=== PATIENT | male | born 1940 | race Caucasian/White ===

== ENCOUNTER 2019-04-12 07:46 | Day surgery (SDC) | payer MEDICARE, OTHER ==
[~2019-04-12 07:46] MED LIST: ACETAMINOPHEN 500 MG TABLET PO ONE; CEFAZOLIN 2 Gram 2 GM/50 ML BAG IVPB ONE; CELECOXIB 100 MG CAPSULE PO ONE; FAMOTIDINE 20MG TABLET PO ONE; METOCLOPRAMIDE 10 MG TABLET PO ONE; SCOPOLAMINE 1 PATCH TDSY TD ONE; VANCOMYCIN 1GM/200ML PREMIX 1 GM/200 ML PIGGYBACK IVPB ONE
[2019-04-12] MEDS ORDERED: LIDOCAINE 2% MDV (20MG/ML) 20ML VIAL IV ONE (07:47)
[2019-04-12] MEDS ORDERED: SEVOFLURANE 250 ML INH ONE (07:47)
[2019-04-12] MEDS ORDERED: EPHEDRINE SULFATE 50 MG/ML ML IV ONE (07:47)
[2019-04-12] MEDS ORDERED: ONDANSETRON HCL IV 4 MG/2 ML VIAL IVP ONE (07:47)
[2019-04-12] MEDS ORDERED: MIDAZOLAM HCL 2MG/2ML VIAL IV ONE (07:47)
[2019-04-12] MEDS ORDERED: ROPIVACAINE HCL (NAROPIN) /PF 5MG/ML 20ML VIAL IV ONE (07:47)
[2019-04-12] MEDS ORDERED: PROPOFOL 10 MG/ML VIAL IV ONE (07:47)
[2019-04-12] MEDS ORDERED: FENTANYL PF 100MCG/2ML VIAL IV ONE (07:47)
[2019-04-12] MEDS ORDERED: DEXAMETHASONE 4 MG/ML 1ML VIAL IVP ONE ×2 (07:47)
[2019-04-12 08:36] LABS: ABO GROUP A; ANTIBODY SCREEN NEGATIVE (NEGATIVE); RH TYPE POSITIVE
[2019-04-12] MEDS ORDERED: RINGERS SOLUTION,LACTATED 1,000 ML IV ONE ×3 (08:40→12:00)
[2019-04-12] MEDS ORDERED: ACETAMINOPHEN 325 MG TAB PO PRN (09:19)
[2019-04-12] MEDS ORDERED: HYDROMORPHONE HCL 2 MG/ML VIAL IM PRN ×2 (09:19)
[2019-04-12] MEDS ORDERED: BISACODYL 10 MG SUPP RC PRN (09:19)
[2019-04-12] MEDS ORDERED: KETOROLAC 30 MG/ML VIAL IVP PRN (09:19)
[2019-04-12] MEDS ORDERED: ACETAMINOPHEN W/ CODEINE 300MG/30MG TABLET PO PRN ×2 (09:19)
[2019-04-12] MEDS ORDERED: ACETAMINOPHEN W/ CODEINE 300MG/60MG TABLET PO PRN (09:19)
[2019-04-12] MEDS ORDERED: PROMETHAZINE HCL 25 MG TABLET PO PRN (09:19)
[2019-04-12] MEDS ORDERED: TRAMADOL HCL 50 MG TABLET PO PRN ×2 (09:19)
[2019-04-12] MEDS ORDERED: METOCLOPRAMIDE 10 MG TABLET PO PRN (09:19)
[2019-04-12] MEDS ORDERED: ONDANSETRON 4 MG ODT TABLET SL PRN (09:19)
[2019-04-12] MEDS ORDERED: HYDROCODONE/APAP 7.5/325MG TABLET PO PRN (09:19)
[2019-04-12] MEDS ORDERED: MAGNESIUM HYDROXIDE 30 ML UDC PO PRN (09:19)
[2019-04-12] MEDS ORDERED: NALOXONE 0.4 MG/1 ML VIAL IVP PRN (09:19)
[2019-04-12] MEDS ORDERED: HYDROCODONE/APAP 5/325MG TABLET PO PRN ×2 (09:19)
[2019-04-12] MEDS ORDERED: DIPHENHYDRAMINE HCL 25 MG CAPSULE PO PRN (09:19)
[2019-04-12] MEDS ORDERED: AL HYDROX/MAG HYDROX 30ML UD PO PRN (09:19)
[2019-04-12] MEDS ORDERED: DOCUSATE SODIUM 100 MG CAPSULE PO SCH (10:00)
[2019-04-12] MEDS ORDERED: VANCOMYCIN HCL 1 GM VIAL IU ONE (12:00)
[2019-04-12] MEDS ORDERED: TRANEXAMIC ACID 1,000 MG/10 ML ML IU ONE (12:00)
[2019-04-12] MEDS ORDERED: VANCOMYCIN HCL 1 GM VIAL IR ONE (12:00)
[2019-04-12] MEDS ORDERED: BUPIVACAINE LIPOSOME 266MG/20ML VIAL IU ONE (12:00)
[2019-04-12] MEDS ORDERED: BUPIVACAINE 0.5% W/EPI MPF 30 ML VIAL SQ ONE (12:00)
[2019-04-12] MEDS ORDERED: DEXTROSE 5 % AND 0.9 % NACL 1,000 ML IV PRN (12:30)
[2019-04-12] MEDS ORDERED: VANCOMYCIN HCL 1,000 MG in 0.9 % SODIUM CHLORIDE 250ML 250 ML IVPB ONE (12:36)
[2019-04-12] MEDS ORDERED: VANCOMYCIN 500MG/100ML PREMIX 500 MG/100 ML PIGGYBACK IVPB ONE (13:00)
--- NOTE | 2019-04-12 14:20 | Rehab Evaluation ---
Patient Information - Patient Information Diagnosis: L TKA patellar revision Ordered Treatment: PT Evaluate and Treat Status: Initial Evaluation Surgery: Yes (L patellar revision) Date of Surgery: 04/12/19 Past Medical/Surgical Hx: PAST MEDICAL/SURGICAL HISTORY Past Surgical History TURP 2019 LTKA 2016 RTKA 2017 RIGHT RTC REPAIR C SCOPES APPY PMH - Respiratory Hx Respiratory Disorders No PMH - Cardiovascular Hx Cardiovascular Disorders Yes Hx Abnormal EKG Yes Hx Deep Vein Thrombosis Yes: LEFT LEG 2012 Hx Irregular Heartbeat Yes: PAF RECENT DX HAD EPISODE IN HIS 20'S ALSO Exercise Tolerance Good PMH - Neuro Hx Neurological Disorders Yes Comment: BALANCE ISSUES PMH - GI Hx Gastrointestinal Disorders No PMH - Hx Genitourinary Disorders Yes Hx Prostate Problems Yes: TURP PMH - Endocrine Hx Endocrine Disorders No PMH - Musculoskeletal Hx Musculoskeletal Disorders Yes Hx Arthritis Yes: RA HANDS PMH - Psych Hx Psychiatric Problems No PMH - Hematology/Oncology Hx Hematology/Oncology No Disorders Hx Clotting Problems Yes: HX DVT Premorbid Status: Detail (The patient was independent with all mobility prior to surgery.) Social History: Detail (The patient lives in a one story house with spouse with one step at the enterance and a post to grab.) Precautions: [place], Cardiac, Other (WBAT on the L LE) - Time With Patient Total Time Spent With Patient (Min): 20 Treatment Procedures: Detail (Initial Evaluation, low complexity.) Subjective Information - Subjective Information Per Patient (The patient had no complaints of L knee pain.) Objective Data - Mental Status Patient Orientation: Oriented x3 - Visual Perception Appears within normal limits for therapeutic activities - ROM Not within normal limits (The patient's L knee AROM is limited s/p surgery. All other LE AROM is WNL.) - Strength/Tone Other (The patient's LE strength was not tested secondary to surgery however is functional.) - Bed Mobility Independent (The patient is independent with supine to and from sit transfer.) - Transfers Independent (The patient was independent with sit to and from stand transfer.) - Balance Balance Sitting: Good Balance Standing: Good - Sensation Intact - Gait Detail (The patient ambulated 300 feet with front wheeled walker WBAT on the L LE independently. The patient ambulated on 3 steps with use of one railing using proper technique.) Therapy Assessment - Therapy Assessment Detail (The patient was independent with bed mobility, transfers and ambulation on levels and stairs. The patient has met all inpt. PT goals.) Patient Education - Patient Education Teaching Topic: Exercise/Activity (The patient's HEP was reviewed including: quad sets, hamstring sets, SLR, ankle pumps, gluteal sets, seated heel slides.) Response: Return Demonstration Teaching Method: Demonstration, Handout Teaching Recipient: Patient Barriers To Learning: None Problem List - Problem List Physical Therapy Problem List: Detail (Decreased L knee AROM.) Goals - Goals Physical Therapy Goals: All inpt. PT goals have been met. Plan - Plan Physical Therapy Plan: The patient has been discharged from inpt. PT and is to receive Home Health services.
--- NOTE | 2019-04-12 14:38 | Rehab Evaluation ---
Patient Information - Patient Information Diagnosis: L TKA patellar revision Ordered Treatment: OT Evaluate and Treat Status: Initial Evaluation Surgery: Yes (L patellar revision) Date of Surgery: 04/12/19 Past Medical/Surgical Hx: PAST MEDICAL/SURGICAL HISTORY Past Surgical History TURP 2019 LTKA 2016 RTKA 2017 RIGHT RTC REPAIR C SCOPES APPY PMH - Respiratory Hx Respiratory Disorders No PMH - Cardiovascular Hx Cardiovascular Disorders Yes Hx Abnormal EKG Yes Hx Deep Vein Thrombosis Yes: LEFT LEG 2013 Hx Irregular Heartbeat Yes: PAF RECENT DX HAD EPISODE IN HIS 20'S ALSO Exercise Tolerance Good PMH - Neuro Hx Neurological Disorders Yes Comment: BALANCE ISSUES PMH - GI Hx Gastrointestinal Disorders No PMH - Hx Genitourinary Disorders Yes Hx Prostate Problems Yes: TURP PMH - Endocrine Hx Endocrine Disorders No PMH - Musculoskeletal Hx Musculoskeletal Disorders Yes Hx Arthritis Yes: RA HANDS PMH - Psych Hx Psychiatric Problems No PMH - Hematology/Oncology Hx Hematology/Oncology No Disorders Hx Clotting Problems Yes: HX DVT Premorbid Status: Detail (The patient was independent with all mobility and ADLs prior to surgery.) Social History: Detail (The patient lives in a one story house with spouse with one step at the enterance and a post to grab. He has a walk in shower with grab bars and a hand held shower head. Pt has standard toilet with no grab bars. Equipment available includes 2WW, w/c, and four single point canes.) Precautions: [place], Cardiac, Other (WBAT on the L LE) - Time With Patient Total Time Spent With Patient (Min): 20 Treatment Procedures: Detail (OT eval LOW) Subjective Information - Subjective Information Per Patient Objective Data - Pain Pain Present: No Pain Intensity: 0 (Left knee) Pain Scale Used: Numeric (1 - 10) - Mental Status Patient Orientation: Oriented x3 - Visual Perception Appears within normal limits for therapeutic activities - ROM Within normal limits (BUE's) - Strength/Tone Within normal limits (BUE's) - Coordination Appears within normal limits for therapeutic activities - Bed Mobility Independent (supine to short sit edge of bed) - Transfers Independent (sit<>stand t/f) - Balance Balance Sitting: Good - Gait Detail (Refer to PT note) - ADL's/IADL's Detail (Pt educated and demonstrated understanding of modified lower body drsg techniques. Pt completed modified lower body drsg techniques to don underwear, pants, socks, and shoes independently and safely. Independent with UB drsg. Pt ambulated to bathroom without walker use but with gait belt on and completed toileting in standing and hand washing independently. Pt feels confident with drsg techniques.) Therapy Assessment - Therapy Assessment Detail (Pt educated on and demonstrated independence with modified lower body drsg techniques.) Patient Education - Patient Education Teaching Topic: Other (Modified lower body drsg techniques) Teaching Method: Discussion Teaching Recipient: Patient Barriers To Learning: None Prognosis - Prognosis Good Plan - Plan Occupational Therapy Plan: No further inpatient OT needed at this time.
--- NOTE | 2019-04-13 07:56 | Operative Note ---
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 OPERATION: PATELLAR ARTHROPLASTY. SURGEON: Garrison Malcolm M.D. ANESTHESIA: Spinal. COMPLICATIONS: None. BLOOD LOSS: Minimal. OPERATIVE FINDINGS: Patellar erosion bone on metal. COMPONENTS PLACED: 35 mm cemented Genesys II patellar component with 1 gram Vancomycin cement. INDICATION: This is a 79-year-old male who is about four years status post total knee arthroplasty. He has done well initially although over the last several months he has developed more pain around the patellofemoral area. The patella was never replaced by another surgeon. I diagnosed him in the office and we scheduled him for surgery. I explained the risks and benefits in detail for diagnosis and procedures including, but not limited to infection, nerve injury, vessel injury, persistent pain, numbness, tingling of the knee, periprosthetic fracture, need for resection arthroplasty should components loosen, nerve injury, vessel injury, blood clot and need for further procedures. All of his questions were answered. He agreed to proceed. PROCEDURE: The patient was brought to the Operating Room and placed in the supine position. Spinal anesthesia was induced. His left lower extremity was prepped and draped in sterile fashion. The left knee was prepped again with ChloraPrep after it was draped. Intraoperative timeout was performed. Next we exsanguinated the leg, used previous incision, and infiltrated with 0.5% Marcaine with Epinephrine, Exparel and tranexamic acid mixture. The skin and subcutaneous tissues were dissected down and incised the capsule. We cauterized with Aquamantys at every level of approach. We everted the patella, we partially resected the retropatellar fat pad, had some scar around the patella, we measured it to be 25 mm, we placed a cutting jig at 16 mm to allow for 9 mm thick insert and we cut the patella using the cutting jig and saw. It was right on 16, sized to be 35, medialized as much as possible, drilled three peg holes, and mixed cement. We did a trial range of motion and the patella tracked nicely with a good fit. Irrigated copiously changed gloves, pre-coated both surfaces, and inserted the patellar component. We packed down the femoral component and removed excess cement. We irrigated it copiously. Next we injected our mixture again deep superficial working out subcutaneous with several sticks of the Exparel and tranexamic acid mixture. We closed the capsule securely and flexed it using running #2 Quill suture. A sterile dressing was applied as well as a EDSON dressing. He tolerated the procedure well. No intraoperative complications. Sponge, needle and blade counts are correct. Recovery Room stable. Neurovascularly intact. Discharged as an outpatient. Follow-up in two weeks. JOB NUMBER: [id number] [facility]
== END 2019-04-12 15:10 | disposition home or self-care (01) ==
LOC: SUR 07:46 → MEDSURG 13:17 → SUR 15:10
PROVIDERS: ATTEND Orthopaedic Surgery
DX: M22.2X2 Patellofemoral disorders, left knee (principal); I48.91 Unspecified atrial fibrillation; Z79.01 Long term (current) use of anticoagulants; M06.9 Rheumatoid arthritis, unspecified; Z86.718 Personal history of other venous thrombosis and embolism; F17.210 Nicotine dependence, cigarettes, uncomplicated
CPT/HCPCS: 76942; 86850; 86900; 86901; J2405; J3370; J7050; J7120